=== PATIENT | female | born 1970 | race Caucasian/White ===

== ENCOUNTER → 2023-11-02 09:58 | Outpatient (REF) | payer OTHER, SELFPAY | LOC: RAD 09:58 | PROVIDERS: ATTENDING PHYSICIAN Internal Medicine | DX: R59.9 Enlarged lymph nodes, unspecified (principal); R22.1 Localized swelling, mass and lump, neck | CPT/HCPCS: 76536 ==

== ENCOUNTER → 2024-03-12 14:48 | Outpatient (REF) | payer OTHER, SELFPAY | LOC: HWRAD 14:48 | PROVIDERS: ATTENDING PHYSICIAN Obstetrics & Gynecology Gynecology; FAMILY PHYSICIAN Nurse Practitioner | DX: N93.9 Abnormal uterine and vaginal bleeding, unspecified (principal) | CPT/HCPCS: 76830; 76856 ==

== ENCOUNTER → 2024-09-02 10:15 | Outpatient (REF) | payer BC, SELFPAY | LOC: RAD 10:15 | PROVIDERS: ATTENDING PHYSICIAN Nurse Practitioner | DX: J06.9 Acute upper respiratory infection, unspecified (principal) | CPT/HCPCS: 71046 ==

== ENCOUNTER → 2025-06-03 15:55 | Outpatient (REF) | payer BC, SELFPAY | LOC: WDC 15:55 | PROVIDERS: ATTENDING PHYSICIAN Obstetrics & Gynecology Gynecology; FAMILY PHYSICIAN Nurse Practitioner | DX: Z12.39 Encounter for other screening for malignant neoplasm of breast (principal); Z12.31 Encounter for screening mammogram for malignant neoplasm of breast | CPT/HCPCS: 77063; 77067 ==